=== PATIENT | female | born 2005 | race Hispanic/Latino ===

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

== ENCOUNTER 2025-05-05 00:19 | Emergency (ER) | payer MEDICAID ==
[~2025-05-05] VITALS: Ht 157.5 cm; Wt 95.3 kg
[~2025-05-05 00:19] MED LIST changes: +MACR100 PO; +ONDA-243 PO; -ONDA4TAB10 PO
--- NOTE | 2025-05-05 00:21 | NUR ---
UA CUP PROVIDED
--- NOTE | 2025-05-05 00:57 | NUR ---
UA COLLECTED AND SENT
[2025-05-05 01:07] LABS: APPEARANCE,URINE CLOUDY (CLEAR); GLUCOSE, URINE (UA) NEGATIVE (NEGATIVE); LEUKOCYTE ESTERASE ,URINE 75 Leu/uL (NEGATIVE); NITRATE,URINE NEGATIVE (NEGATIVE); OCCULT BLOOD,URINE NEGATIVE (NEGATIVE)
[2025-05-05 01:10] LABS: IMMATURE GRANULOCYTE ABSOLUTE 0.01 K/uL (0-1); NUCLEATED RED BLOOD CELLS 0.0 % (0.0-0.19); PLATELET COUNT (AUTO) 301 K/uL (130-400); RED BLOOD CELL COUNT(AUTO) 4.54 MIL/uL (4.00-5.50); RED CELL DISTRIBUTION WIDTH 14.3 % (11.0-15.5); WHITE BLOOD COUNT (AUTO) 10.1 K/uL (4.8-10.8)
[2025-05-05 01:11] LABS: ADD UA MICROSCOPIC YES
[2025-05-05 01:13] LABS: HCG,QUALITATIVE URINE NEGATIVE (NEGATIVE)
[2025-05-05 01:18] LABS: CREATININE 0.9 mg/dL (0.5-1.0); GLOMERULAR FILTR. RATE CALC 94.0 mL/min (>90); GLUCOSE,RANDOM 108.0 mg/dL (70-105); SODIUM SERUM 138.0 mmol/L (136-145); UREA NITROGEN, BLOOD 7.0 mg/dL (7-18)
[2025-05-05 01:18] LABS: SQUAMOUS EPITHELIAL CELL,UR MOD /HPF (0-2)
--- NOTE | 2025-05-05 01:42 | NUR ---
PATIENT EYES CLOSED, NO DISTRESS NOTED, CALL LIGHT WITHIN REACH.
[2025-05-05] MEDS ORDERED: FAMOTIDINE 20MG VIAL IV ONE (02:00)
--- NOTE | 2025-05-05 02:02 | ERN ---
ED Note History of Present Illness Stated Complaint: ABD PAIN Chief Complaint: Abdominal Pain Time Seen by MD: 00:25 Time Seen by Midlevel: 00:28 Dictation: 19-year-old female with no past medical history coming in with complaints of migraine and epigastric pain for three days. States it migraines only been for one day. No fever no dysuria no hematuria. No nausea no vomiting or diarrhea. LMP states with the 1st of last month. Allergies: Coded Allergies: No Known Allergies (Unverified Allergy, Unknown, 12/31/18) No Known Drug Allergies (Unverified Allergy, Unknown, 12/31/18) Home Meds Active Scripts Nitrofurantoin/Nitrofuran Mac (Macrobid) 100 Mg Cap, 1 CAP PO BID for 7 Days, #14 CAP 0 Refills Prov:NANCY DIXON 11/18/23 Famotidine (Famotidine) 20 Mg Tablet, 20 MG PO BID for 7 Days, #14 TAB Prov:CHANCE SOP 08/25/22 Ondansetron (Ondansetron Odt) 4 Mg Tab.rapdis, 4 MG PO Q6HPRN PRN for nausea, #16 TAB 0 Refills Prov:TENA KANG MD 03/03/22 Ibuprofen (Ibuprofen) 800 Mg Tablet, 800 MG PO Q8H PRN for PAIN, #30 TAB 0 Refills Prov:TENA KANG MD 03/03/22 Dicyclomine HCl (Bentyl) 10 Mg Cap, 10 MG PO QID for 7 Days, #30 CAP Prov:HANS AGUILAR MD 08/11/21 Past Medical History Past Medical History: Seizure Surgical History: None Family History: Negative Social History: Drugs, Lives with family LMP: Mar 29, 2025 Review of System Dictation Constitutional: Negative for fever,chills, and weight loss Eyes: Negative for injury, pain,redness, and discharge ENT: Negative for injury,pain or swelling Cardiovascular: Negative for chest pain, palpitations, and edema Respiratory: Negative for shortness of breath, cough, and wheezing, Abdomen/GI: Epigastric pain, no nausea no vomiting no diarrhea Back: Negative for injury and pain : Negative for injury, bleeding and discharge MS/Extremity: Negative for injury and deformity Skin: Negative for rash, and discoloration Neuro: Negative for headache, weakness, numbness, tingling, and seizure Psych: Negative for suicide ideation, homicidal ideation, and hallucinations Review of Systems: was completed Initial Vital Sign VS Vital Signs Date Time Temp Pulse Resp B/P (MAP) Pulse Ox O2 Delivery O2 Flow Rate FiO2 05/05/25 00:20 98.2 78 16 127/75 100 Room Air Physical Exam Dictation General: awake, alert, NAD Head/Face: Normocephalic, atraumatic Eyes: PERRL, EOMI, vision at baseline ENT: oral cavity clear, TMs clear, no signs of infection Neck: Trachea midline, supple, no nuchal rigidity Cardiovascular: RRR, normal S1/S2, No MRGs, no JVD Respiratory: CTAB, no respiratory distress, No rales or wheezes Abdomen: Soft, non-tender, non-distended, normal bowel sounds, no guarding or rebound. Skin: Warm, dry, normal turgor, no rash MS/Extremity: Pulses equal, no cyanosis, neurovascular intact, FROM Neuro: COAx4, GCS 15, strength 5/5, CN 2-12 intact, normal cerebellar exam, normal gait, Psych: Normal behavior, mood, and affect normal Results (Laboratory/Radiology) Laboratory/Radiology Laboratory Tests Test 05/05/25 00:55 05/05/25 00:57 White Blood Count 10.1 K/uL (4.8-10.8) Red Blood Count 4.54 MIL/uL (4.00-5.50) Hemoglobin 11.8 g/dL (12.0-16.0) L Hematocrit 36.5 % (36-48) Mean Corpuscular Volume 80.4 fL (80-100) Mean Corpuscular Hemoglobin 26.0 pg (27.0-33.0) L Mean Corpuscular Hemoglobin Concent 32.3 g/dL (32.0-36.0) Red Cell Distribution Width 14.3 % (11.0-15.5) Platelet Count 301 K/uL (130-400) Mean Platelet Volume 9.8 fL (7.5-10.5) Immature Granulocyte % (Auto) 0.1 % (0-1) Neutrophils (%) (Auto) 64.8 % (40.0-77.0) Lymphocytes (%) (Auto) 27.9 % (21.0-51.0) Monocytes (%) (Auto) 5.8 % (3.0-13.0) Eosinophils (%) (Auto) 1.1 % (0.0-8.0) Basophils (%) (Auto) 0.3 % (0.0-5.0) Neutrophils # (Auto) 6.5 K/uL (1.8-7.7) Lymphocytes # (Auto) 2.8 K/uL (1.0-4.8) Monocytes # (Auto) 0.6 K/uL (0.1-1.0) Eosinophils # (Auto) 0.11 K/uL (0.00-0.70) Basophils # (Auto) 0.03 K/uL (0.00-0.20) Absolute Immature Granulocyte (auto 0.01 K/uL (0-1) Nucleated Red Blood Cells 0.0 % (0.0-0.19) Sodium Level 138 mmol/L (136-145) Potassium Level 4.2 mmol/L (3.5-5.1) Chloride Level 100 mmol/L (101-111) L Carbon Dioxide Level 32 mmol/L (21-32) Blood Urea Nitrogen 7 mg/dL (7-18) Creatinine 0.9 mg/dL (0.5-1.0) Glomerular Filtration Rate Calc 94 mL/min (>90) Random Glucose 108 mg/dL (70-105) H Total Calcium 9.1 mg/dL (8.5-10.1) Lipase 38 U/L (16-77) Urine Color LIGHT-YELLOW (YELLOW) Urine Appearance CLOUDY (CLEAR) H Urine pH 6.5 (5.0-8.0) Urine Specific [place] 1.019 (1.001-1.031) Urine Protein NEGATIVE mg/dL (NEGATIVE) Urine Glucose (UA) NEGATIVE mg/dL (NEGATIVE) Urine Ketones NEGATIVE mg/dL (NEGATIVE) Urine Occult Blood NEGATIVE (NEGATIVE) Urine Nitrate NEGATIVE (NEGATIVE) Urine Bilirubin NEGATIVE mg/dL (NEGATIVE) Urine Urobilinogen 0.2 mg/dL (0.2-1.0) Urine Leukocyte Esterase 75 Marily/uL (NEGATIVE) H Urine RBC 0-1 /HPF (0-1) Urine WBC 2-5 /HPF (0-1) H Urine Squamous Epithelial Cells MOD /HPF (0-2) Urine Bacteria RARE /HPF (None Seen) Urine HCG, Qualitative NEGATIVE (NEGATIVE) Labs Reviewed?: Yes ED Course ED Course Orders Procedure Category Date Status Time Vital Signs Per CPOE 05/05/25 Transmitted Routine 00:21 Saline Lock Iv CPOE 05/05/25 Transmitted 00:21 Cbc With Differential LAB 05/05/25 Complete 00:21 Lipase LAB 05/05/25 Complete 00:21 Urinalysis Profile LAB 05/05/25 Complete 00:21 Basic Metabolic Panel LAB 05/05/25 Complete 00:21 ,Urine Test LAB 05/05/25 Complete 00:21 Culture Urine RADHA 05/05/25 In Process 01:12 Ketorolac PHA 05/05/25 Verified Tromethamine 15mg/Ml 02:00 Ondansetron 4mg Inj PHA 05/05/25 Verified (Zofran 4mg Inj) 02:00 Famotidine 20mg Vial PHA 05/05/25 Verified (Pepcid 20mg Vial) 02:00 Gi Cocktail(Viscous PHA 05/05/25 Verified Lido 2%) 02:00 Gi Cocktail (Maalox PHA 05/05/25 Verified 30ml) 02:00 Gi Cocktail(Bentyl PHA 05/05/25 Verified 10mg) 02:00 Vital Signs Date Time Temp Pulse Resp B/P (MAP) Pulse Ox O2 Delivery O2 Flow Rate FiO2 05/05/25 00:20 98.2 78 16 127/75 100 Room Air Medical Decision Making MDM MDM: 19-year-old female with no past medical history coming in with complaints of migraine and epigastric pain for three days. States it migraines only been for one day. No fever no dysuria no hematuria. No nausea no vomiting or diarrhea. LMP states with the 1st of last month. Blood work is unremarkable. Lipase is normal. Discussed findings with the patient, educated patient more than likely she has either gastritis or GERD. Educated on diet and went to follow up with PCP. Patient verbalized understanding, answered all questions. Differential diagnosis: GERD, gastritis, pancreatitis, Rationale: Tests considered and ordered secondary to shared decision making include: Previous outside records reviewed: Old ER visits. Risk of complication and/or morbidity or mortality of patient management: None Medications-Per medication reconciliation Need for hospitalization: Patient does not meet criteria for hospitalization. Need for emergency major/minor surgery: No There are no social concerns with this patient. Prescription drug management Prescriptions will include symptomatic care Patient's prior external medical records from other ER visits were reviewed by me as indicated. Prior testing and results from previous visits were reviewed. Prior tests were taken into account with medical decision making and resource utilization, independent historian/historians were used to obtain complete medical history. I independently interpreted the test that were performed, results were reviewed by me and considered findings on radiology if ordered. Medical management and examination interpretation discussions were had by me with other qualified healthcare professionals as indicated for the patient's care. DX & DISP Disposition: Discharge Departure Impression: Primary Impression: Gastritis Condition: Stable Additional Instructions: Do not eat any spicy, greasy, fried foods. Follow up with your PCP. You can take [id number] antacids, Maalox or Pepcid. Return to the hospital if you have any worsening symptoms. Referrals: CRUZ CABRERA (PCP) Time of Disposition: 02:02 I have reviewed the case, and I agree with, Diagnosis and Plan MAC MOODY NP May 05, 2025 02:02
[2025-05-05] MEDS: DICYCLOMINE HCL 10 MG/5 ML ML PO ONE (02:19)
[2025-05-05] MEDS: LIDOCAINE HCL 2% VISCOUS 15 ML UDCUP PO ONE (02:19)
[2025-05-05] MEDS: MAG/ALUM/SIMETH 30 ML UDCUP PO ONE (02:19)
[2025-05-05] MEDS: FAMOTIDINE 20MG TAB PO ONE (02:33)
[2025-05-05 02:41] VITALS: BP 128/74; PULSE 82; RESP 18; TEMP 98.2; O2SAT 98
== END 2025-05-05 02:44 | disposition home or self-care (01) ==
LOC: EDH 00:19
DX: K29.70 Gastritis, unspecified, without bleeding (principal); Z79.899 Other long term (current) drug therapy
CPT/HCPCS: 99284; 80048; 83690; 85025; 87086; 81001; 81025; 36415; 96372; J1885

== ENCOUNTER 2025-08-13 18:13 | Emergency (ER) | payer MEDICAID ==
[~2025-08-13] VITALS: Ht 160 cm; Wt 99.3 kg
--- NOTE | 2025-08-13 18:35 | ERN ---
ED Note History of Present Illness Stated Complaint: ANDOMINAL PAIN, Chief Complaint: Abdominal Pain Time Seen by MD: 18:20 Dictation: PATIENT IS A 20-YEAR-OLD FEMALE WHO STATES SHE IS APPROXIMATELY 4-5 WEEKS AND IS HAVING VAGINAL SPOTTING FOR THE LAST 2-3 DAYS WITH PELVIC CRAMPING. NO FLANK PAIN. . NO CARE. SHE STATES SHE IS NOT ON ANY VITAMINS. NO OB DOCTOR Allergies: Coded Allergies: No Known Allergies (Unverified Allergy, Unknown, 12/31/18) No Known Drug Allergies (Unverified Allergy, Unknown, 12/31/18) Home Meds Active Scripts Nitrofurantoin/Nitrofuran Mac (Macrobid) 100 Mg Cap, 1 CAP PO BID for 7 Days, #14 CAP 0 Refills Prov:NANCY DIXON 11/18/23 Famotidine (Famotidine) 20 Mg Tablet, 20 MG PO BID for 7 Days, #14 TAB Prov:CHANCE SO V [employer] 08/25/22 Ondansetron (Ondansetron Odt) 4 Mg Tab.rapdis, 4 MG PO Q6HPRN PRN for nausea, #16 TAB 0 Refills Prov:TENA KANG MD 03/03/22 Ibuprofen (Ibuprofen) 800 Mg Tablet, 800 MG PO Q8H PRN for PAIN, #30 TAB 0 Refills Prov:TENA KANG MD 03/03/22 Dicyclomine HCl (Bentyl) 10 Mg Cap, 10 MG PO QID for 7 Days, #30 CAP Prov:HANS AGUILAR MD 08/11/21 Past Medical History Past Medical History: No Pertinent History, Seizure Surgical History: None Family History: Negative Social History: Drugs, Lives with family : 2 Para: 1 Aborts: 0 RN Note Reviewed/Agreed w/PFSH: Yes Review of System Dictation CONSTITUTIONAL: NEGATIVE EXCEPT FOR HPI HEAD/FACE: NEGATIVE EXCEPT FOR HPI EENT: NEGATIVE EXCEPT FOR HPI RESPIRATORY: NEGATIVE EXCEPT FOR HPI GASTROINTESTINAL/ABDOMINAL: NEGATIVE EXCEPT FOR HPI GENITOURINARY: NEGATIVE EXCEPT FOR HPI VAGINAL SPOTTING/PELVIC PAIN MUSCULOSKELETAL: NEGATIVE EXCEPT FOR HPI INTEGUMENTARY: NEGATIVE EXCEPT FOR HPI NEUROLOGICAL/PSYCH: NEGATIVE EXCEPT FOR HPI HEMATOLOGIC/LYMPHATIC: NEGATIVE EXCEPT FOR HPI ALL SYSTEMS NEGATIVE, EXCEPT NOTED ABOVE. 13 POINT REVIEW OF SYSTEMS ASSESSED AND ALL NEGATIVE EXCEPT FOR ABOVE. Initial Vital Sign VS Vital Signs Date Time Temp Pulse Resp B/P (MAP) Pulse Ox O2 Delivery O2 Flow Rate FiO2 08/13/25 18:15 97.9 75 16 137/66 99 Room Air 08/13/25 19:47 0 21 Physical Exam Dictation VITAL SIGNS REVIEWED GENERAL APPEARANCE: ALERT, ORIENTED X 3, NO ACUTE DISTRESS, WELL DEVELOPED, NOURISHED. MORBIDLY OBESE HEAD AND FACE: NON-TRAUMATIC. EYES: PERRL, PINK CONJUNCTIVAS, EYELID NO TRAUMA, ANTERIOR CHAMBER WITH ARCUS SENILIS. EARS: PINNAS INTACT AND NO SIGNS OF TRAUMA OR ERYTHEMA EAR CANALS CLEAR AND NO DISCHARGE TM NO ERYTHEMA NOSE: NO DISCHARGE, NO BLEEDING. OROPHARYNX: MOUTH NORMAL, TONGUE PINK, PHARYNX CLEAR,NO ERYTHEMA, TONSILS NO EXUDATES, NO ABSCESSES NOTED, MUCOUS MEMBRANE MOIST NECK: SUPPLE, NON-TENDER, NO THYROMEGALY, NO MASSES, NO JVD, NO BRUITS BREAST:DEFERRED CHEST:NO TENDERNESS, NO CREPITUS, NO PARADOXICAL MOVEMENT, NO RETRACTIONS LUNGS:CLEAR, WELL-VENTILATED, SYMMETRIC, NO RALES, NO WHEEZING, NO RHONCHI, NO STRIDOR, GOOD BREATH SOUNDS BILATERALLY HEART: REGULAR RATE, REGULAR RHYTHM, NO MURMUR, NO GALLOPS VASCULAR: NO PERIPHERAL EDEMA, ABDOMEN: SOFT, POSITIVE BOWEL SOUNDS, NONDISTENDED, NO GUARDING, NONTENDER, NO REBOUND, NO MASSES NO HEPATOMEGALY, NO SPLENOMEGALY, NO CERNA'S SIGN, NO HERNIAS. RECTAL: DEFERRED GENITAL: DEFERRED NEUROLOGICAL: NORMAL SPEECH, MOTOR FUNCTION INTACT, SENSORY FUNCTION INTACT MUSCULOSKELETAL: NECK NONTENDER, FULL RANGE OF MOTION, BACK NONTENDER, FULL RANGE OF MOTION, EXTREMITIES: NONTENDER, FULL RANGE OF MOTION SKIN: COLOR PINK, DRY, NO TURGOR, NO RASH, NO LACERATIONS, NO ABRASIONS, NO CONTUSIONS. LYMPHATIC: DEFERRED Results (Laboratory/Radiology) Laboratory/Radiology Laboratory Tests Test 08/13/25 18:55 White Blood Count 9.7 K/uL (4.8-10.8) Red Blood Count 4.53 MIL/uL (4.00-5.50) Hemoglobin 11.9 g/dL (12.0-16.0) L Hematocrit 36.8 % (36-48) Mean Corpuscular Volume 81.2 fL (80-100) Mean Corpuscular Hemoglobin 26.3 pg (27.0-33.0) L Mean Corpuscular Hemoglobin Concent 32.3 g/dL (32.0-36.0) Red Cell Distribution Width 15.3 % (11.0-15.5) Platelet Count 266 K/uL (130-400) Mean Platelet Volume 9.5 fL (7.5-10.5) Immature Granulocyte % (Auto) 0.3 % (0-1) Neutrophils (%) (Auto) 68.3 % (40.0-77.0) Lymphocytes (%) (Auto) 24.2 % (21.0-51.0) Monocytes (%) (Auto) 6.5 % (3.0-13.0) Eosinophils (%) (Auto) 0.5 % (0.0-8.0) Basophils (%) (Auto) 0.2 % (0.0-5.0) Neutrophils # (Auto) 6.6 K/uL (1.8-7.7) Lymphocytes # (Auto) 2.4 K/uL (1.0-4.8) Monocytes # (Auto) 0.6 K/uL (0.1-1.0) Eosinophils # (Auto) 0.05 K/uL (0.00-0.70) Basophils # (Auto) 0.02 K/uL (0.00-0.20) Absolute Immature Granulocyte (auto 0.03 K/uL (0-1) Nucleated Red Blood Cells 0.0 % (0.0-0.19) Sodium Level 135 mmol/L (136-145) L Potassium Level 3.9 mmol/L (3.5-5.1) Chloride Level 102 mmol/L (101-111) Carbon Dioxide Level 28 mmol/L (21-32) Blood Urea Nitrogen 6 mg/dL (7-18) L Creatinine 0.8 mg/dL (0.5-1.0) Glomerular Filtration Rate Calc 107 mL/min (>90) Random Glucose 84 mg/dL (70-105) Total Calcium 8.5 mg/dL (8.5-10.1) Human Chorionic Gonadotropin, Quant 11969 mIU/mL (0-5) H 1905/OB ULTRASOUND DEMONSTRATES A VIABLE IUP, 6W3D, HEART TONES 160 NO BLEED. Labs Reviewed?: Yes ED Course ED Course Orders Procedure Category Date Status Time Cbc With Differential LAB 08/13/25 Complete 18:32 Hcg,Quantitative LAB 08/13/25 Complete 18:32 Us Ob <14 Weeks US 08/13/25 Resulted 18:32 Type And Screen BBK 08/13/25 Complete 18:32 Basic Metabolic Panel LAB 08/13/25 Complete 18:32 Vital Signs Date Time Temp Pulse Resp B/P (MAP) Pulse Ox O2 Delivery O2 Flow Rate FiO2 08/13/25 19:47 97.9 75 16 137/66 99 Room Air* 0 21 08/13/25 18:15 97.9 75 16 137/66 99 Room Air 1945/patient refused pelvic exam at this time. 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 Risk of complication and/or morbidity or mortality of patient management: None Medications-Per medication reconciliation Need for hospitalization: Patient does not meet criteria for hospitalization. None Need for emergency major/minor surgery: No There are no social concerns with this patient. Prescription drug management none Prescriptions will include symptomatic care Patient's prior external medical records from other ER visits were reviewed by me as indicated. Prior testing and results from previous visits were reviewed. Prior tests were taken into account with medical decision making and resource utilization, independent historian/historians were used to obtain complete medical history. I independently interpreted the test that were performed, results were reviewed by me and considered findings on radiology if ordered. Medical management and examination interpretation discussions were had by me with other qualified healthcare professionals as indicated for the patient's care. DX & DISP Disposition: Discharge Departure Impression: Primary Impression: Dehydration Additional Impression: Threatened miscarriage in early Condition: Stable Additional Instructions: Follow-up with primary care provider in 1 to 2 days. Take medications as directed here in the emergency room. Okay to continue home medications unless otherwise discussed during your visit in the emergency room today. Return to your nearest emergency room if symptoms worsen or if there is no improvement. Call 911 if you need immediate assistance. Take Tylenol [id number] as needed and if no contraindications are present. Increase oral hydration. A wound culture or urine culture was ordered here in the emergency room department please follow-up with primary care provider and advise them to get repeat ports from our facility. If you had any Vincent wrap/splints that were applied here, please do not remove them until you see your primary care or specialty. Take Tylenol [id number] as needed for pain. Start vitamins today and take daily as directed with food. Pelvic rest and no sex until cleared by your milk wagon driver in the next several days. No smoking, no alcohol and no [id number] medications except Tylenol until cleared by your doctor Referrals: CRUZ CABRERA (PCP) Time of Disposition: 19:47 I have reviewed the case, and I agree with, Diagnosis and Plan DELFIN LAY [facility] Aug 13, 2025 18:35
[2025-08-13 19:03] LABS: IMMATURE GRANULOCYTE ABSOLUTE 0.03 K/uL (0-1); NUCLEATED RED BLOOD CELLS 0.0 % (0.0-0.19); PLATELET COUNT (AUTO) 266 K/uL (130-400); RED BLOOD CELL COUNT(AUTO) 4.53 MIL/uL (4.00-5.50); RED CELL DISTRIBUTION WIDTH 15.3 % (11.0-15.5); WHITE BLOOD COUNT (AUTO) 9.7 K/uL (4.8-10.8)
[2025-08-13 19:14] LABS: CREATININE 0.8 mg/dL (0.5-1.0); GLOMERULAR FILTR. RATE CALC 107.0 mL/min (>90); GLUCOSE,RANDOM 84.0 mg/dL (70-105); SODIUM SERUM 135.0 mmol/L (136-145); UREA NITROGEN, BLOOD 6.0 mg/dL (7-18)
[2025-08-13 19:47] VITALS: BP 137/66; PULSE 75; RESP 16; TEMP 97.9; O2SAT 99
--- NOTE | 2025-08-13 19:51 | HMCIMG ---
EXAMINATION: OB ULTRASOUND LESS THAN 14 WEEKS. CLINICAL HISTORY: Amenorrhea. Vaginal spotting. COMPARISON: None. TECHNIQUE: Grayscale and color ultrasound images were obtained utilizing transabdominal transducer. FINDINGS: LMP: 06/05/2025, 9 weeks and 6 days. The uterus measures 9.8 x 4.6 x 5.9 cm. The gestation sac diameter measures 1.3 x 2.5 x 1.9 cm. There is a single, live intrauterine with an approximate gestational age of 6 weeks and 3 days as per the crown-rump length which measures 0.6 cm and a regular heart rate of 160 bpm. There is no evidence of subchorionic hemorrhage. The cervix is normal in length, Internal Os closed. EDC (by LMP): 03/12/2026 and EDC (by measurement): 04/02/2026. The right ovary is obscured by overlying bowel gas. The left ovary is normal in caliber and measures 4.8 x 2.4 x 3.7 cm. There is a corpus luteum that measures 3.1 x 2.6 x 2.9 cm. There is no free fluid within the pelvis. IMPRESSION: Live intrauterine with an approximate gestational age of 6 weeks and 3 days, and a regular heart rate of 160 bpm. /[place]
== END 2025-08-13 20:11 | disposition home or self-care (01) ==
LOC: EDH 18:13
DX: O20.0 Threatened abortion (principal); O99.281 Endocrine, nutritional and metabolic diseases complicating pregnancy, first trimester; E86.0 Dehydration; Z3A.01 Less than 8 weeks gestation of pregnancy
CPT/HCPCS: 36415; 76801; 80048; 84702; 85025; 86850; 86900; 86901; 99284